=== PATIENT | male | born 1950 | race Caucasian/White ===

== ENCOUNTER 2024-05-09 10:11 | Outpatient (CLI) | payer MEDICARE ==
[2024-05-09] MEDS ORDERED: Magnevist 469MG/ML 20 ML VIAL ONE (10:45)
== END 2024-05-09 10:12 | disposition home or self-care (01) ==
LOC: CSHMRI 10:11
PROVIDERS: ATTEND Urology
DX: C61 Malignant neoplasm of prostate (principal)
CPT/HCPCS: 36415; 72197; 82565

== ENCOUNTER 2025-03-20 10:57 | Outpatient (CLI) | payer MEDICARE ==
[2025-03-20 12:13] LABS: #Basophils 0.03 10x3/uL (0.0-0.2); #Eosinophils 0.16 10x3/uL (0.0-0.5); #Monocytes 0.31 10x3/uL (0.0-1.1); #Neutrophils 3.57 10x3/uL (1.5-8.4); %Basophils 0.7 % (0.0-2.0); %Eosinophils 3.5 % (0.0-6.0); %Lymphocytes 9.9 % (18.0-47.0); %Monocytes 6.8 % (0.0-10.0); %Neutrophils 78.2 % (40.0-75.0); Hematocrit 37.1 % (38.8-50.0); Hemoglobin 13.2 g/dL (13.5-17.5); Mean Corpuscular Hemoglobin 31.5 pg (27.0-33.0); Mean Corpuscular Volume 88.5 fL (81.2-95.1); Platelet Count 159 10x3/uL (150-450); Red Blood Cell (RBC) Count 4.19 10x6/uL (4.32-5.72); White Blood Cell (WBC) Count 4.56 10x3/uL (3.5-10.5)
[2025-03-20 12:46] LABS: Anion Gap 12 mmol/L (10-20); BUN (Urea Nitrogen) 18 mg/dL (8.4-25.7); Calc. Creatinine Clearance 0 mL/min (70-130); Calcium 9.2 mg/dL (7.8-10.44); Carbon Dioxide 26 mmol/L (23-31); Chloride 106 mmol/L (98-107); Glucose 96 mg/dL (83-110); Potassium 3.8 mmol/L (3.5-5.1); Sodium 140 mmol/L (136-145)
== END 2025-03-20 10:58 | disposition home or self-care (01) ==
LOC: CSHLAB 10:57
PROVIDERS: ATTEND Specialist
DX: Z01.818 Encounter for other preprocedural examination (principal); K40.90 Unilateral inguinal hernia, without obstruction or gangrene, not specified as recurrent
CPT/HCPCS: 71046; 80048; 85025; 93005; 93010

== ENCOUNTER 2025-03-27 05:55 | Day surgery (SDC) | payer MEDICARE ==
[2025-03-20 11:30] VITALS: BMI 23.5
[2025-03-27] MEDS ORDERED: Ketorolac Tromethamine 30 MG (1 mL) VIAL ONE (06:41)
[2025-03-27] MEDS ORDERED: Bupivacaine/Epinephrine 0.25% 30 ML VIAL ONE (06:44)
[2025-03-27] MEDS ORDERED: Rocuronium Bromide 10 MG/ML (10ML VIAL) ONE (07:18)
[2025-03-27] MEDS ORDERED: PROPOFOL 20 ML ONE (07:18)
[2025-03-27] MEDS ORDERED: CEFAZOLIN 1 GM VIAL ONE (07:39)
[2025-03-27] MEDS ORDERED: PHENYLEPHRINE-NS 100 MCG/ML 10 ML SYRINGE ONE (08:06)
[2025-03-27] MEDS ORDERED: Glycopyrrolate 0.2 MG/ML 5 ML SYRINGE ONE (08:06)
[2025-03-27] MEDS ORDERED: SUGAMMADEX SODIUM 200 MG/2 ML VIAL ONE (08:30)
== END 2025-03-27 12:20 | disposition home or self-care (01) ==
LOC: CSHSDC 05:55
PROVIDERS: ATTEND Specialist
PROC: 0YU54JZ Supplement Right Inguinal Region with Synthetic Substitute, Percutaneous Endoscopic Approach (ICD-10-PCS; principal; 2025-03-27)
DX: K40.90 Unilateral inguinal hernia, without obstruction or gangrene, not specified as recurrent (principal); E11.9 Type 2 diabetes mellitus without complications; E78.5 Hyperlipidemia, unspecified; I10 Essential (primary) hypertension; Z85.46 Personal history of malignant neoplasm of prostate; Z90.89 Acquired absence of other organs; Z91.041 Radiographic dye allergy status; Z88.8 Allergy status to other drugs, medicaments and biological substances; Z79.84 Long term (current) use of oral hypoglycemic drugs; Z79.899 Other long term (current) drug therapy
CPT/HCPCS: 49650; C1781; J0690; J1100; J1885; J2250; J2704; J3010; S2900